=== PATIENT | male | born 1975 | race Two or more races ===

== ENCOUNTER 2018-06-29 15:55 | Emergency (ER) | payer SELFPAY ==
[~2018-06-29] VITALS: Ht 152.4 cm; Wt 72.6 kg
[~2018-06-29 15:55] MED LIST: IBUPROFEN600 MG ORAL; MOTRIN600 MG ORAL; NKM; NORCO 5-325 TA1 EACH ORAL; VALIUM10 MG ORAL; VIBRAMYCIN100 MG ORAL; VICODIN 5-5001 EACH ORAL
[2018-06-29 16:25] VITALS: BP 124/80
[2018-06-29] MEDS ORDERED: Lidocaine 1% Plain 30 ml INJ ONE (16:30)
[2018-06-29] MEDS ORDERED: Naproxen 500mg tab ORAL ONE (16:30)
--- NOTE | 2018-06-29 17:21 | Emergency Room Report ---
History of Present Illness General Chief Complaint: Skin Rash/Abscess Source: Patient Present Illness HPI patient is a 43-year-old male with significant past medical history of drug- seeking, here complaining of 4 days of back pain secondary to spinal abscess patient walks in the ED asking for pain is having the worst pain of his life. Patient is now and semi-combative until we can give him a shot of Toradol or anti-inflammatories claiming they do not work. He is rating his pain 10 out of 10 with radiation and no numbness or tingling. Acute asking if he suggested antibiotics in the absence will go away and be sent home with heavy narcotics. Denies fever chills shortness of breath nausea vomiting tingling or numbness. Patient reports he does not have a primary care physician as he is always working and does not like to be seen by . Allergies: Coded Allergies: No Known Allergies (Unverified , 07/04/13) Patient History Past Medical History: see triage record Past Surgical History: unable to obtain Immunizations: UTD Reviewed Nursing Documentation: PMH: Agreed; PSxH: Agreed Nursing Documentation-PMH Past Medical History: No History, Except For Hx Diabetes: Yes Review of Systems All Other Systems: negative except mentioned in HPI Physical Exam Vital Signs Date Time Temp Pulse Resp B/P (MAP) Pulse Ox O2 Delivery O2 Flow Rate FiO2 06/29/18 16:20 98.3 79 21 124/80 100 Room Air 98.2 Sp02 EP Interpretation: reviewed, normal General Appearance: normal inspection, well appearing, no apparent distress, alert, GCS 15 Eyes: bilateral eye normal inspection, bilateral eye PERRL ENT: normal ENT inspection, hearing grossly normal Neck: normal inspection, full range of motion, supple Respiratory: normal inspection, chest non-tender, lungs clear, normal breath sounds, no rhonchi Cardiovascular #1: normal inspection, normal peripheral pulses, no murmur Gastrointestinal: normal inspection, soft Rectal: deferred Genitourinary: deferred Musculoskeletal: gait/station normal, normal range of motion, swelling - the abscess on thoracic spine around T12-L1 Neurologic: normal inspection, alert, oriented x3, responsive Psychiatric: normal inspection, judgement/insight normal, memory normal Skin: warm/dry, other - abscess on T12-L1 Lymphatic: normal inspection, no adenopathy Procedures Incision and Drainage Incision and Drainage : Consent: Verbal Blade Size: 11 I & D Procedure: betadine prep Wound Location: back Wound's Depth, Shape: into muscle Wound Explored: clean Anesthesia: 1% Lidocaine Volume Anesthetic (ccs): 10 Splint Applied?: No Sling Applied?: No Patient Tolerated: Well Complications: None Progress superficial pus was drained however patient was given Dr. Ml Avelar's information for follow-up as abscess is deep and needed surgical attention Medical Decision Making PA Attestation . All diagnoses and treatment plans were reviewed and discussed with my supervising physician Diagnostic Impression: Primary Impression: Abscess of deep perineal space Additional Impression: Back pain ER Course patient is a 43-year-old male with significant past medical history of drug- seeking, here complaining of 4 days of back pain secondary to spinal abscess patient walks in the ED asking for pain is having the worst pain of his life. Patient is now and semi-combative until we can give him a shot of Toradol or anti-inflammatories claiming they do not work. He is rating his pain 10 out of 10 with radiation and no numbness or tingling. Acute asking if he suggested antibiotics in the absence will go away and be sent home with heavy narcotics. Denies fever chills shortness of breath nausea vomiting tingling or numbness. Patient reports he does not have a primary care physician as he is always working and does not like to be seen by . She refuses to get a tetanus shot as he is afraid of inj Ddx considered but are not limited to superficial spinal abscess, deep spinal abscess , Vital signs: are WNL, pt. is afebrile H&PE are most consistent with deep spinal abscess ORDERS: Bactrim DS, Bactroban,, tramadol ED INTERVENTIONS: and naproxen 500 numbing with 1% lidocaine and superficial I and D DISCHARGE: At this time pt. is stable for d/c to home. Will provide printed patient care instructions, and any necessary prescriptions. Care plan and follow up instructions have been discussed with the patient prior to discharge. Patient is given Dr. Sepulveda immediately formation for possible surgical removal of the back abscesses as the abscesses see a need surgical attention. He has physical close to [facility] to take care of this and still became do so Last Vital Signs Date Time Temp Pulse Resp B/P (MAP) Pulse Ox O2 Delivery O2 Flow Rate FiO2 06/29/18 16:25 98.2 79 21 124/80 100 Room Air 98.2 Disposition: HOME, SELF-CARE Condition: Stable Scripts Tramadol Hcl (TRAMADOL HCL) 100 Mg Tab.er.24h 100 MG ORAL DAILY, #3 TAB Prov: Shawanda Gordon P.A. 06/29/18 Mupirocin Calcium (Bactroban) 15 Gm Cream..g. 1 APPLIC TOPIC THREE TIMES A DAY, #1 GM Prov: Shawanda Gordon P.A. 06/29/18 Trimethoprim/Sulfamethoxazole (Bactrim Ds Tablet) 1 Each Tablet 1 TAB ORAL TWICE A DAY for 10 Days, #20 TAB Prov: Shawanda Gordon.AGodfrey 06/29/18 Referrals: NOT CHOSEN IPA/,REFERRING (PCP) Patient Instructions: Abscess Additional Instructions: follow up with primary care doctor and surgeon for appropriate drainage of abscess as it is deep. if fever/chills return to ED Shawanda Gordon Jun 29, 2018 17:21
[2018-06-29] MEDS ORDERED: BACTROBAN CR1 APPLIC TOPIC (17:23)
[2018-06-29] MEDS ORDERED: BACTRIM-DS1 EA ORAL (17:23)
[2018-06-29] MEDS ORDERED: TRAMADOL HCL100 M2 ORAL (17:23)
[2018-06-29] MEDS ORDERED: Bacitracin Oint UD TOPIC ONE (17:30)
[2018-06-29 17:40] VITALS: BP 120/71
== END 2018-06-29 17:50 | disposition home or self-care (01) ==
LOC: EMR 16:30
DX: L02.215 Cutaneous abscess of perineum (principal); E11.9 Type 2 diabetes mellitus without complications
CPT/HCPCS: 10060; 99283; J2001